=== PATIENT | female | born 1935 | race Caucasian/White ===

== ENCOUNTER → 2017-04-21 | Outpatient (CLI) | payer MEDICARE, OTHER ==
[~2017-04-21] MED LIST: FURO20TA3 PO; OMEP20CA74 PO; PRED-188 PO
== END | disposition home or self-care (01) ==
LOC: LAB 14:30
PROVIDERS: ATTEND Internal Medicine
DX: K86.89 Other specified diseases of pancreas (principal)
CPT/HCPCS: 86301